=== PATIENT | female | born 1960 | race Caucasian/White ===

== ENCOUNTER 2023-09-21 06:58 | Day surgery (SDC) | payer MEDICARE, SELFPAY ==
[2023-09-14 07:39] VITALS: BMI 24.8
--- NOTE | 2023-09-14 15:33 | PTCARENOTE ---
Abnormal EKG and Na [address] English.
--- NOTE | 2023-09-14 15:34 | PTCARENOTE ---
Coco in Dr. Esquivel's office made aware of Na 125.
[2023-09-21] VITALS (10 sets, daily range): BP systolic 109–131; BP diastolic 60–72; BMI 24.8
[2023-09-21 06:53] LABS: Glucose - Point of Care 103 mg/dl (70-99)
[2023-09-21] MEDS: NORMOSOL-R 1000 IV (07:00)
[2023-09-21] MEDS: DILAUDID 0.5 MG IV (08:42)
[2023-09-21 09:41] LABS: Glucose - Point of Care 104 mg/dl (70-99)
[2023-09-21] MEDS: ROXICODONE 5 MG PO (10:10)
== END 2023-09-21 10:18 | disposition home or self-care (01) ==
LOC: SDS 06:58
PROVIDERS: ATTENDING PHYSICIAN Obstetrics & Gynecology
DX: N30.10 Interstitial cystitis (chronic) without hematuria (principal); G24.8 Other dystonia; N39.41 Urge incontinence; G89.29 Other chronic pain; Z87.440 Personal history of urinary (tract) infections
CPT/HCPCS: 52287; 52260; 82962; J0585

== ENCOUNTER 2023-09-29 12:24 | Emergency (ER) | payer MEDICARE, OTHER, SELFPAY ==
[2023-09-29 12:28] VITALS: BP 113/71
[2023-09-29 12:57] LABS: Urine Albumin Negative (Neg - Trace); Urine Bilirubin Negative (Negative); Urine Character Clear (Clear); Urine Color Yellow; Urine Glucose Negative (Negative); Urine Ketone Negative (Negative); Urine Leukocyte Negative (Negative); Urine Nitrite Negative (Negative); Urine Occult Blood Negative (Negative); Urine Urobilinogen Negative (Neg - 1+)
--- NOTE | 2023-09-29 14:49 | ED.GENMED ---
History of Present Illness
General
Chief Complaint: Post Operative Problem(s)
Source: patient and physician
Exam Limitations: none
Time Seen by Provider: 09/29/23 13:54
Travel History
Have you had any contact with someone who has COVID-19?: No
Do you have any symptoms of coronavirus? Fever > 100 degrees, chills, cough, shortness of breath, sore throat, loss of taste or smell, muscle aches, or headache?: No
History of Present Illness
History of Present Illness:
63-year-old female with recent Botox bladder surgery for interstitial cystitis. Complaining of increasing and ongoing pelvic pain urinary urgency passing gas via your her urethra. No fever. Sent by her DIRECTOR OF COMPLIANCE/urology for chart
Phy Exam
Physical Exam
Physical Exam:
GENERAL: Alert and oriented in no apparent distress
EYE: Orbits normal.
NECK: Supple
CARDIAC: Regular rate and rhythm without any obvious murmurs.
LUNGS: Clear breath sounds,normal
ABDOMEN: Soft, diffuse pelvic tenderness. No rebound or guarding no mass or hernia
NEUROLOGICAL: Alert and oriented , grossly non-focal
SKIN: Warm and dry
MUSCULOSKELETAL: No edema,no deformity.Good color
PSYCH: Normal and appropriate interaction.
Course
Orders/Labs/Results
Orders:
Orders
09/29/23 12:42
Urinalysis Reflex To Culture Urgent
Date Specimen was Collected: 09/29/23
Time Specimen was Collected: 12:33
09/29/23 13:[address] Urography Urgent
Comment:
Reason For Exam: Pelvic pain. Recent surgery
09/29/23 14:39
Complete Blood Count/With Diff Urgent
Comprehensive Metabolic Panel Urgent
09/29/23 18:40
Johnston Placement- Treatment ONCE
Reason for insertion: Urology Determination
Abnormal Lab Results
09/29/23
14:39
RBC 3.97 L 10^6/uL
(4.20-5.40)
Hct 34.5 L %
(37.0-47.0)
Absolute Monos (auto) 0.9 H 10^3/uL
(0.1-0.6)
Monocytes % 11.1 H %
(1.7-9.3)
Creatinine 0.5 L mg/dL
(0.6-1.0)
Glucose 107 H mg/dl
(70-99)
Albumin 5.1 H g/dl
(3.5-5.0)
09/29/23 14:39
09/29/23 14:39
Vital Signs
Initial and Last Documented VS:
Initial Vital Signs
Temp Pulse Resp BP Pulse Ox
98.2 F 84 16 113/71 98
09/29/23 12:28 09/29/23 12:28 09/29/23 12:28 09/29/23 12:28 09/29/23 12:28
Last Documented Vital Signs
Temp Pulse Resp BP Pulse Ox
98.2 F 84 16 113/71 98
09/29/23 12:28 09/29/23 12:28 09/29/23 12:28 09/29/23 12:28 09/29/23 12:28
*Radiology
Radiology exam reviewed: radiology read reviewed (6 mm stone in the right kidney. Air-fluid level within the bladder most likely from recent instrumentation)
*Pulse Oximetry
Patient hypoxic: no
*Critical Care Note
Total Time (30-74mins, 75-104mins- exclusive of procedures): Not Applicable
Update Note
Update Note:
Reviewed results with Dr. Esquivel. He requests a Johnston bowel regimen and follow-up. No indication for antibiotics. Just finished Cipro. All reviewed with him. Patient updated.
ED Attending Note
-
Portions of this chart may have been created with voice recognition software.� Occasional wrong word or��sound alike� substitutions may have occurred due to the inherent limitations of voice recognition software.
Discharge Plan
Departure
Patient Disposition: Home (Routine Discharge)
Date of Disposition: 09/29/23
Time of Disposition: 18:41
Patient with high blood pressure during this ER visit?: No
Discharge Problem:
Pelvic pain, Suspect secondary to bladder spasms, Recent bladder procedure
Instructions: How to Care for Your Johnston Catheter
Prescriptions:
No Action
lidocaine 1 EACH adhesive patch,medicated
5 % topical PRN PRN (Reason: back/bladder pain)
amitriptyline 25 MG tablet
25 mg PO HS
diazepam 2 MG tablet
2 mg PO PRN PRN (Reason: bladder spasms)
hydrocodone-acetaminophen 1 TABLET tablet
1 tab PO BID PRN (Reason: pain)
Rx Instructions:
1/2 tablet
pantoprazole 40 MG tablet,delayed release (DR/EC)
40 mg PO DAILY
letrozole 2.5 MG tablet
2.5 mg PO DAILY
hydroxyzine HCl 10 MG tablet
10 mg PO HS
duloxetine 60 MG capsule,delayed release(DR/EC)
60 mg PO DAILY
Epidiolex 1 UNIT solution
1 - 2 drops PO PRN PRN (Reason: pain)
Marijuana-Patient's Own Medical Cannabis
1 dose topical PRN PRN (Reason: bladder/back pain)
Patient Comments:
cream
Diazepam: Supp.Vag
10 mg VAG PRN PRN (Reason: pain)
cyanocobalamin (vitamin B-12) 1,000 MCG tablet
1,000 mcg PO DAILY
acetaminophen [Tylenol Extra Strength] 500 MG tablet
1,000 mg PO Q6HPRN PRN (Reason: pain)
cholecalciferol (vitamin D3) 1,000 UNITS tablet
1,000 units PO DAILY
atorvastatin 80 mg Tablet
80 mg PO QPM
clopidogrel [Plavix] 75 mg Tablet
75 mg PO DAILY
calcium carbonate [Calcium 500] 500 mg calcium (1,250 mg) Tablet
500 mg PO DAILY
metformin 1,000 mg Tablet
1,000 mg PO BID
losartan 25 mg Tablet
25 mg PO DAILY
nitroglycerin 0.4 mg Tablet, Sublingual
0.4 mg SUBLINGUAL Q5-15M PRN (Reason: chest pain)
metoprolol tartrate 25 mg Tablet
25 mg PO BID
aspirin 81 mg Capsule
81 mg PO DAILY
zinc
50 mg PO DAILY
gabapentin 300 mg Capsule
600 mg PO BID
Referrals:
Bishnu Berumen DO [Family Provider] -
Jose Esquivel MD [Active] - Follow up in 5-7 days
Activity Restrictions/Additional Instructions:
Follow-up early next week with your urologist
Return with fever increasing pain vomiting or any other concerning symptoms
Interventions
Interventions:
*Risk Screen - Suicide Last Done: 09/29/23 12:28
*General Assessment Last Done: 09/29/23 12:28
*Neglect/Abuse Screening Last Done: 09/29/23 12:28
ED- Fall Risk Assessment Last Done: 09/29/23 15:15
*ED COVID-19 Vaccine History Last Done: 09/29/23 15:15
ED-Skin Assessment Last Done: 09/29/23 15:15
Discharge Date and Time
Print Language: UPPER SORBIAN
[2023-09-29 15:10] LABS: % Basophils 0.5 % (0-2); % Eosinophils 0.8 % (0-6); % Immature Granulocytes 0.4 % (0-0.5); % Lymphocytes 22.1 % (20.5-51.1); % Monocytes 11.1 % (1.7-9.3); % Neutrophils 65.1 % (42.2-75.2); Absolute Eosinophils 0.1 10^3/uL (0-0.7); Absolute Lymphocytes 1.7 10^3/uL (1.2-3.4); Absolute Monocytes 0.9 10^3/uL (0.1-0.6); Absolute Neutrophils 5.1 10^3/uL (1.4-6.5); Hematocrit 34.5 % (37.0-47.0); Mean Corp Hgb Conc. 34.8 g/dL (33.0-37.0); Mean Corpuscular Hgb 30.2 pg (27.0-31.0); Mean Corpuscular Volume 86.9 fL (81.0-99.0); Nucleated Red Blood Cells % 0 %; Platelet Count 280 10^3/uL (130-400); Red Blood Cell Count 3.97 10^6/uL (4.20-5.40); Red Cell Dist. Width 13.1 % (11.5-14.5); White Blood Cell Count 7.8 10^3/uL (4.8-10.8)
[2023-09-29 15:34] LABS: ALT (SGPT) 26 U/L (0-35); AST (SGOT) 27 U/L (14-36); Albumin 5.1 g/dl (3.5-5.0); Alkaline Phosphatase 77 U/L (38-126); Blood Urea Nitrogen 16 mg/dl (7-17); Calcium 10.2 mg/dl (8.4-10.2); Carbon Dioxide 22 mmol/L (22-30); Chloride 100 mmol/L (98-107); Glucose 107 mg/dl (70-99); Potassium 4.8 mmol/L (3.5-5.1); Sodium 137 mmol/L (135-145); Total Bilirubin 0.6 mg/dl (0.2-1.3); eGFR > 60.00
[2023-09-29 19:16] VITALS: BP 121/73
== END 2023-09-29 19:18 | disposition home or self-care (01) ==
LOC: EMR 12:24
PROVIDERS: EMERGENCY PHYSICIAN Emergency Medicine; FAMILY PHYSICIAN Family Medicine
DX: R10.2 Pelvic and perineal pain (principal)
CPT/HCPCS: 99284; 74178; 76775; 80053; 81003; 85025; Q9967

== ENCOUNTER → 2024-05-10 06:26 | Outpatient (REF) | payer MEDICARE, SELFPAY ==
[2024-05-10 08:46] LABS: Hematocrit 37.3 % (37.0-47.0); Hemoglobin 12.5 g/dL (12.0-16.0); Mean Corp Hgb Conc. 33.5 g/dL (33.0-37.0); Mean Corpuscular Hgb 31.7 pg (27.0-31.0); Mean Corpuscular Volume 94.7 fL (81.0-99.0); Mean Platelet Volume 9.3 fL (7.4-10.4); Platelet Count 310 10^3/uL (130-400); Red Blood Cell Count 3.94 10^6/uL (4.20-5.40); Red Cell Dist. Width 13.5 % (11.5-14.5)
[2024-05-10 09:23] LABS: Blood Urea Nitrogen 17 mg/dl (7-17); Carbon Dioxide 30 mmol/L (22-30); Chloride 98 mmol/L (98-107); Glucose 96 mg/dl (70-99); Potassium 4.7 mmol/L (3.5-5.1); Sodium 140 mmol/L (135-145); eGFR > 60.00
== END ==
LOC: SDSPAT 06:26
PROVIDERS: ATTENDING PHYSICIAN Urology; FAMILY PHYSICIAN Family Medicine; OTHER PHYSICIAN Internal Medicine Cardiovascular Disease
DX: Z01.818 Encounter for other preprocedural examination (principal)
CPT/HCPCS: 36415; 80048; 85027; 93005

== ENCOUNTER 2024-05-16 06:36 | Day surgery (SDC) | payer MEDICARE, SELFPAY ==
[2024-05-10 10:10] VITALS: BMI 24.1
[2024-05-16] VITALS (11 sets, daily range): BP systolic 107–134; BP diastolic 57–83; BMI 24.1
[2024-05-16 10:07] LABS: Glucose - Point of Care 107 mg/dl (70-99)
[2024-05-16] MEDS: Pyridium 200 MG PO (10:26)
[2024-05-16] MEDS: VALIUM 5 MG PO (11:42)
[2024-05-16 12:07] LABS: Glucose - Point of Care 106 mg/dl (70-99)
[2024-05-16] MEDS: DILAUDID 0.25 MG IV (12:09)
[2024-05-16] MEDS: ROXICODONE 5 MG PO (13:30)
== END 2024-05-16 13:51 | disposition home or self-care (01) ==
LOC: SDS 06:36
PROVIDERS: ATTENDING PHYSICIAN Urology
PROC: 0T7B8ZZ Dilation of Bladder, Via Natural or Artificial Opening Endoscopic (ICD-10-PCS; 2024-05-16)
PROC: 3E0K8GC Introduction of Other Therapeutic Substance into Genitourinary Tract, Via Natural or Artificial Opening Endoscopic (ICD-10-PCS; 2024-05-16)
DX: N30.10 Interstitial cystitis (chronic) without hematuria (principal); N39.41 Urge incontinence
CPT/HCPCS: 52260; 52287; 82962; J0585

== ENCOUNTER 2025-05-15 06:18 | Day surgery (SDC) | payer MEDICARE, SELFPAY ==
--- NOTE | 2025-05-09 16:52 | PTCARENOTE ---
Abnormal ECG done on 04/21/25 was reviewed by ; no further actions were requested.
[2025-05-15] VITALS (9 sets, daily range): BP systolic 105–125; BP diastolic 62–73; BMI 24.6
[2025-05-15 07:53] LABS: Glucose - Point of Care 131 mg/dl (70-99)
[2025-05-15] MEDS: SUBLIMAZE 50 MCG IV (09:47)
[2025-05-15] MEDS: ROXICODONE 5 MG PO (10:42)
== END 2025-05-15 10:50 | disposition home or self-care (01) ==
LOC: SDS 06:18
PROVIDERS: ATTENDING PHYSICIAN Urology
DX: N30.10 Interstitial cystitis (chronic) without hematuria (principal); N39.41 Urge incontinence
CPT/HCPCS: 52287; 52260; 82962; J0585